=== PATIENT | female | born 1950 ===

== ENCOUNTER 2017-09-03 11:22 | Outpatient (CLI) | payer MEDICARE, MEDICAID ==
--- NOTE | 2017-09-03 14:01 | Diagnostic Imaging Report ---
Indication: Shortness of breath Technique: 2 views of the chest Comparison: And Findings: There is a left chest AICD. There is a right arm PICC. There is evidence of prior median sternotomy and clipping of the left atrial appendage. There is slight blunting of the bilateral costophrenic sulci, could be on the basis of chronic scarring but could also indicate trace pleural fluid. There is some atelectasis at the left lung base. A Pleurx catheter is seen in the left hemithorax, tip projecting in the medial inferior left pleural space. Impression: Minimal bilateral costophrenic angle blunting. This may reflect trace pleural fluid or chronic scarring Pleurx catheter in place Left basilar atelectasis Postsurgical changes, as described Findings discussed by phone with Dr. Juárez at the time of interpretation
== END 2017-09-03 13:22 | disposition home or self-care (01) ==
LOC: RAD 11:22
DX: J90 Pleural effusion, not elsewhere classified (principal); J98.11 Atelectasis; Z95.810 Presence of automatic (implantable) cardiac defibrillator
CPT/HCPCS: 71046